=== PATIENT | female | born 1945 | race Caucasian/White ===

== ENCOUNTER 2017-01-05 20:58 | Emergency (ER) | payer MEDICARE, BC ==
[2017-01-05 21:29] VITALS: BP 122/76
[2017-01-05] MEDS ORDERED: Albuterol/Ipratropium NEB.SOL* Albuterol 2.5 MG/Ipratropium 0.5 MG 3 ML INH ONE (21:55)
[2017-01-05] MEDS ORDERED: predniSONE TAB* 20 MG PO ONE (21:55)
--- NOTE | 2017-01-05 22:00 | UC ---
Respiratory Complaint HPI - HPI Summary HPI Summary: ST began 1 week ago, has had cough fever chills and feeling terrible - History of Current Complaint Chief Complaint: UCGeneralIllness Stated Complaint: FEVER Time Seen by Provider: 01/05/17 21:16 Hx Obtained From: Patient ?: No Onset/Duration: Gradual Onset, Lasting Days - 7, Still Present Timing: Constant Severity Initially: Moderate Severity Currently: Moderate Pain Intensity: 8 Pain Scale Used: 0-10 Numeric Character: Cough: Productive Aggravating Factors: Nothing Alleviating Factors: Bronchodilator - albuterol 3 times a day, OTC Meds - robitussin with codiene provides some relief Associated Signs And Symptoms: Positive: Fever, Chills, Wheezing, Nasal Congestion - Allergies/Home Medications Allergies/Adverse Reactions: Allergies Allergy/AdvReac Type Severity Reaction Status Date / Time NSAIDs Allergy Severe ITCHING, Verified 01/05/17 21:10 HIVES Butalbital Allergy Rash Verified 01/05/17 21:10 Ibuprofen Allergy Hives Verified 01/05/17 21:10 Nickel Allergy CONTACT Verified 01/05/17 21:10 RASH Penicillins [PCN] Allergy Rash Verified 01/05/17 21:10 Home Medications: Home Medications Citalopram TAB* [Celexa TAB*] 20 mg PO DAILY 01/05/17 [History Confirmed ] Gabapentin CAP(*) [Neurontin 300 CAP(*)] 300 mg PO BEDTIME 01/05/17 [History Confirmed 01/05/17] Guaifenesin-Codeine [Coditussin AC 200-10 mg/5Ml] PRN 01/05/17 [History] PMH/Surg Hx/FS Hx/Imm Hx Previously Healthy: No Endocrine History Of: Reports: Thyroid Disease Denies: Diabetes Cardiovascular History Of: Denies: Cardiac Disorders, Hypertension, Pacemaker/ICD Respiratory History Of: Reports: Asthma - PRN INHALERS Denies: COPD GI/ History Of: Denies: Ulcer, Renal Disease Neurological History Of: Reports: Migraine - HX OF - Psychological History Of: Reports: Anxiety - MEDICATION FOR - Surgical History Surgical History: Yes Surgery Procedure, Year, and Place: APPENDECTOMY-1963 HYSTERECTOMY-1985. BILATERAL CATARACTS 2012 - Family History Known Family History: Positive: Other - Cancer - Social History Occupation: Retired Lives: With Family Alcohol Use: Occasionally Substance Use Type: None Smoking Status (MU): Never Smoked Tobacco - Immunization History Most Recent Influenza Vaccination: Fall 2015 Most Recent Tetanus Shot: UTD Most Recent Pneumonia Vaccination: UTD Review of Systems Constitutional: Fever, Chills, Fatigue Skin: Negative Eyes: Negative ENT: Sore Throat, Nasal Discharge Respiratory: Cough Cardiovascular: Negative Gastrointestinal: Negative Genitourinary: Negative Motor: Negative Neurovascular: Negative Musculoskeletal: Negative Neurological: Negative Psychological: Negative All Other Systems Reviewed And Are Negative: Yes Physical Exam Triage Information Reviewed: Yes Appearance: Well-Nourished, Ill-Appearing, Pain Distress Vital Signs: Initial Vital Signs Temp 98.8 F 01/05/17 21:18 Pulse 72 01/05/17 21:18 Resp 18 01/05/17 21:18 BP 122/76 01/05/17 21:18 Vital Signs Reviewed: Yes Eye Exam: Normal Eyes: Positive: Conjunctiva Clear ENT Exam: Normal ENT: Positive: Normal ENT inspection, Hearing grossly normal, Pharynx normal, TMs normal. Negative: Pharyngeal erythema, Nasal congestion, Nasal drainage, Tonsillar swelling, Tonsillar exudate, Trismus, Muffled/hoarse voice Dental Exam: Normal Neck exam: Normal Neck: Positive: Supple, Nontender, No Lymphadenopathy Respiratory Exam: Normal Respiratory: Positive: Chest non-tender, No respiratory distress, No accessory muscle use, Wheezing Cardiovascular Exam: Normal Cardiovascular: Positive: RRR, No Murmur, Pulses Normal, Brisk Capillary Refill Musculoskeletal Exam: Normal Musculoskeletal: Positive: Strength Intact, ROM Intact, No Edema Neurological Exam: Normal Neurological: Positive: Alert, Muscle Tone Normal Psychological Exam: Normal Skin Exam: Normal UC Diagnostic Evaluation - Laboratory Diagnostic Studies Comment: influenza B(+) RST (-) UA +Blood (Medullary sponge kidney (+) at base line) Re-Evaluation - Re-Evaluation First Eval Change: Improved - feeling much better, increase areation, less wheeze, reports able to take deep breaths with much more ease Respiratory Course/Dx - Course Course Of Treatment: Prednisone, albuterol with aerochamber, increase fluids, follow with pcp - Differential Dx/Diagnosis Differential Diagnosis/HQI/PQRI: Asthma, Bronchitis, Laryngitis, Lower Resp Infection Provider Diagnoses: Influenza, acute exacebation of bronchospasm Discharge - Discharge Plan Condition: Stable Disposition: HOME Prescriptions: predniSONE TAB* [Deltasone TAB*] 10 mg PO DAILY #20 tab Patient Education Materials: How to Use a Metered-Dose Inhaler (ED), Influenza (ED), Bronchospasm (ED) Referrals: Jose Ferrera MD [Primary Care Provider] - 3 Days
== END 2017-01-05 22:45 | disposition home or self-care (01) ==
LOC: UCEAST 20:58
DX: J11.1 Influenza due to unidentified influenza virus with other respiratory manifestations (principal); J98.01 Acute bronchospasm; E07.9 Disorder of thyroid, unspecified; G43.909 Migraine, unspecified, not intractable, without status migrainosus; F41.9 Anxiety disorder, unspecified; Z88.6 Allergy status to analgesic agent; Z88.0 Allergy status to penicillin
CPT/HCPCS: 81003; 87502; 87651; 99213; A9270-GY; G0463; J7512

== ENCOUNTER 2017-05-02 10:13 | Emergency (ER) | payer MEDICARE, BC ==
[2017-05-02 10:26] VITALS: BP 132/75
--- NOTE | 2017-05-02 11:42 | UC ---
UC General HPI - HPI Summary HPI Summary: 72 y/o female present to the urgent care c/o burning on urination and chest congestion for the past week. Pt states her vulva is irritated w/o any vaginal discharge. She has HX or urinary incontinence. She is concern w/ UTI. She reports she always have positive RBCs in the urine since she has HX Medullary spongy Kidney. She also has HX of seasonal allergies and for the past week she has been w/ nasal congestion and coughing a green phlegm. She has been taking Luly and Mucinex.. She is concerned w/ bronchitis. Pt denies fever, flank pain, SOB, chest pain, N/V/D, Pt has not other complains. - History of Current Complaint Hx Obtained From: Patient Onset/Duration: Gradual Onset, Lasting Weeks, Still Present Timing: Constant Onset Severity: Mild Current Severity: Moderate Pain Intensity: 0 Associated Signs & Symptoms: Positive: Cough, Dysuria. Negative: Back Pain, Diarrhea, Edema, Fever, Headache, Nausea, SOB, Vomiting <Janie Arreola - Last Filed: 05/03/17 19:12> <Shital Jacobo - Last Filed: 05/03/17 20:41> - History of Current Complaint Chief Complaint: UCGU Stated Complaint: URINARY ISSUE Time Seen by Provider: 05/02/17 11:21 - Allergy/Home Medications Allergies/Adverse Reactions: Allergies Allergy/AdvReac Type Severity Reaction Status Date / Time NSAIDs Allergy Severe ITCHING, Verified 05/02/17 10:20 HIVES Butalbital Allergy Rash Verified 05/02/17 10:20 Ibuprofen Allergy Hives Verified 05/02/17 10:20 Nickel Allergy CONTACT Verified 05/02/17 10:20 RASH Penicillins [PCN] Allergy Rash Verified 05/02/17 10:20 Home Medications: Home Medications Pantoprazole TAB (NF) [Protonix TAB (NF)] 40 mg PO DAILY PRN 05/02/17 [History Confirmed 05/02/17] SUMAtriptan TAB* [Imitrex TAB*] 100 mg PO SEE INSTRUCTIONS PRN 05/02/17 [ History Confirmed 05/02/17] guaiFENesin ER TAB [Mucinex*] 1 tab PO BID PRN 05/02/17 [History Confirmed 05/02] PMH/Surg Hx/FS Hx/Imm Hx Previously Healthy: Yes Endocrine History: Hypothyroidism Other Endocrine History: Basal cell carcinoma of the skin, Other Respiratory History: seasonal allergies GI/ History: Renal Disease - Medullary spongy kidney Other Cancer History: Basal cell carcinoma of the skin s/p removal in 12/2016 - Surgical History Surgical History: Yes Surgery Procedure, Year, and Place: APPENDECTOMY-1963 HYSTERECTOMY-1985. BILATERAL CATARACTS 2012 - Family History Known Family History: Positive: Other - Cancer Family History: Cancer - Social History Occupation: Retired Lives: With Family Alcohol Use: Occasionally Substance Use Type: None Smoking Status (MU): Never Smoked Tobacco - Immunization History Most Recent Influenza Vaccination: Fall 2015 Most Recent Tetanus Shot: UTD Most Recent Pneumonia Vaccination: UTD <Janie Arreola - Last Filed: 05/03/17 19:12> Review of Systems Constitutional: Negative Skin: Negative Eyes: Negative ENT: Nasal Discharge, Sinus Congestion Respiratory: Cough - productive with green phlemg Cardiovascular: Negative Gastrointestinal: Negative Genitourinary: Dysuria Motor: Negative Neurovascular: Negative Musculoskeletal: Negative Neurological: Negative Psychological: Negative All Other Systems Reviewed And Are Negative: Yes <Janie Arreola - Last Filed: 05/03/17 19:12> Physical Exam Triage Information Reviewed: Yes Appearance: Well-Appearing, No Pain Distress, Well-Nourished Vital Signs: Initial Vital Signs Temp 98.4 F 05/02/17 10:21 Pulse 74 05/02/17 10:21 Resp 16 05/02/17 10:21 BP 132/75 05/02/17 10:21 Pulse Ox 97 05/02/17 10:21 Vital Signs Reviewed: Yes Eye Exam: Normal Eyes: Positive: Conjunctiva Clear - PERRLA, EOMI, fundi grossly normal ENT Exam: Normal ENT: Positive: Normal ENT inspection, Hearing grossly normal, Pharynx normal, Nasal congestion - edematous and erythemaotus nasal mucosa w/ clear nasal discharge. Positive clear postnasal drip, Nasal drainage, TMs normal Dental Exam: Normal Neck exam: Normal Neck: Positive: Supple, Nontender, No Lymphadenopathy Respiratory Exam: Normal Respiratory: Positive: Chest non-tender, Lungs clear, Normal breath sounds Cardiovascular Exam: Normal Cardiovascular: Positive: RRR, No Murmur, Pulses Normal, Brisk Capillary Refill Abdominal Exam: Normal Abdomen Description: Positive: Nontender, No Organomegaly, Soft. Negative: CVA Tenderness (R), CVA Tenderness (L) Bowel Sounds: Positive: Present Musculoskeletal Exam: Normal Musculoskeletal: Positive: Strength Intact, ROM Intact, No Edema Neurological Exam: Normal Psychological Exam: Normal Skin Exam: Normal <Janie Arreola - Last Filed: 05/03/17 19:12> Vital Signs: Initial Vital Signs Temp 98.4 F 05/02/17 10:21 Pulse 74 05/02/17 10:21 Resp 16 05/02/17 10:21 BP 132/75 05/02/17 10:21 Pulse Ox 97 05/02/17 10:21 <Shital Jacobo - Last Filed: 05/03/17 20:41> Course/Dx - Course Course Of Treatment: 72 y/o female present to the urgent care c/o burning on urination and chest congestion for the past week. Pt states her vulva is irritated w/o any vaginal discharge. She has HX or urinary incontinence. She is concern w/ UTI. She reports she always have positive RBCs in the urine since she has HX Medullary spongy Kidney. She also has HX of seasonal allergies and for the past week she has been w/ nasal congestion and coughing a green phlegm. She has been taking Luly and Mucinex.. She is concerned w/ bronchitis. Pt denies fever, flank pain, SOB, chest pain, N/V/D. Hx obtained. PE abnormal findings:ENT:edematous and erythemaotus nasal mucosa w/ clear nasal discharge. Positive clear postnasal drip. Most likely a Rhinosinusitis. UA ordered to r/o UTI, result: negative. +blood. Pt declines Pelvic examination. She states she will apply the A&D cream to lubricate her labia majora which has worked in the past. Pt Rx Pyridium Po to alleviate dysuria. and Rx Benzoate PO for her cough and advised to continue taking the luly. Pt advised to f/u with her PCP if symptoms do not improve. Pt understood and agreed. - Differential Dx - Multi-Symptom Differential Diagnoses: Urinary Tract Infection, Other - Vaginosis, renal stone. sinusitis, URI, bronchitis Provider Diagnoses: 1-Rhinosinusitis. 2-Dysuria <Janie Arreola - Last Filed: 05/03/17 19:12> Discharge <Janie Arreola - Last Filed: 05/03/17 19:12> <Shital Jacobo - Last Filed: 05/03/17 20:41> - Discharge Plan Condition: Stable Disposition: HOME Prescriptions: Benzonatate CAP* [Tessalon 100 MG CAP*] 100 mg PO TID PRN #30 cap PRN Reason: Cough Phenazopyridine TAB* [Pyridium 100 mg TAB*] 100 mg PO TID #6 tab Patient Education Materials: Rhinosinusitis (ED), Dysuria (ED) Referrals: No Primary Care Phys,NOPCP [Primary Care Provider] - [facility] [Outside] Additional Instructions: Please continue taking the luly PO, Mucinex PO you have at home. If symptoms of cough do not improve take the Tessalon tabs. If symptoms worsen please f/u with your new PCP in 3 weeks. Increase fluid intake and rest and take the Pyridium for urinary symptoms . Attestation Statement User Type: Provider - I was available for consult. This patient was seen by the advanced practice provider. The patient was not presented to, seen by, or examined by me.-Torsten <Shital Jacobo - Last Filed: 05/03/17 20:41>
== END 2017-05-02 11:49 | disposition home or self-care (01) ==
LOC: UCEAST 10:13
DX: R30.0 Dysuria (principal); J32.9 Chronic sinusitis, unspecified; R32 Unspecified urinary incontinence; E03.9 Hypothyroidism, unspecified; Z85.828 Personal history of other malignant neoplasm of skin; Z90.710 Acquired absence of both cervix and uterus; Z98.42 Cataract extraction status, left eye; Z98.41 Cataract extraction status, right eye; Z88.6 Allergy status to analgesic agent; Z88.0 Allergy status to penicillin
CPT/HCPCS: 81003; 99212; G0463